=== PATIENT | male | born 1955 ===

== ENCOUNTER → 2020-12-06 08:38 | Outpatient (CLI) | payer OTHER | END | disposition home or self-care (01) | LOC: LAB 08:38 | PROVIDERS: ATTEND Internal Medicine Cardiovascular Disease | DX: E78.2 Mixed hyperlipidemia (principal); I10 Essential (primary) hypertension; E11.9 Type 2 diabetes mellitus without complications; E03.9 Hypothyroidism, unspecified; Z12.11 Encounter for screening for malignant neoplasm of colon; N40.0 Benign prostatic hyperplasia without lower urinary tract symptoms; E55.9 Vitamin D deficiency, unspecified ==

== ENCOUNTER 2020-12-06 10:34 | Outpatient (CLI) | payer OTHER | END 2020-12-06 10:44 | disposition home or self-care (01) | LOC: RAD 10:34 | PROVIDERS: ATTEND Internal Medicine Cardiovascular Disease | DX: M46.02 Spinal enthesopathy, cervical region (principal); M19.91 Primary osteoarthritis, unspecified site; E03.9 Hypothyroidism, unspecified ==

== ENCOUNTER 2020-12-12 08:48 | Outpatient (CLI) | payer OTHER | END 2020-12-12 15:05 | disposition home or self-care (01) | LOC: LAB 08:48 | PROVIDERS: ATTEND Internal Medicine Cardiovascular Disease | DX: E78.2 Mixed hyperlipidemia (principal); I10 Essential (primary) hypertension; E11.9 Type 2 diabetes mellitus without complications; E03.9 Hypothyroidism, unspecified; Z12.11 Encounter for screening for malignant neoplasm of colon; N40.0 Benign prostatic hyperplasia without lower urinary tract symptoms; E55.9 Vitamin D deficiency, unspecified ==

== ENCOUNTER 2020-12-12 09:27 | Outpatient (CLI) | payer OTHER | END 2020-12-12 09:37 | disposition home or self-care (01) | LOC: RX STUDY 09:27 | PROVIDERS: ATTEND Internal Medicine Cardiovascular Disease | DX: R13.10 Dysphagia, unspecified (principal) ==

== ENCOUNTER 2023-01-07 09:56 | Outpatient (CLI) | payer OTHER | END 2023-01-07 10:02 | disposition home or self-care (01) | LOC: RAD 09:56 | PROVIDERS: ATTEND Physical Medicine & Rehabilitation | DX: M17.0 Bilateral primary osteoarthritis of knee (principal); M25.561 Pain in right knee ==

== ENCOUNTER 2025-03-01 07:26 | Outpatient (CLI) | payer OTHER | END 2025-03-01 07:30 | disposition home or self-care (01) | LOC: SONOGRAMA 07:26 | PROVIDERS: ATTEND Physical Medicine & Rehabilitation | DX: M25.511 Pain in right shoulder (principal); M17.11 Unilateral primary osteoarthritis, right knee; M25.561 Pain in right knee ==